=== PATIENT | male | born 1945 | race Two or more races ===

== ENCOUNTER 2019-11-20 10:13 | Day surgery (SDC) | payer MEDICARE ==
[2019-11-18 15:50] VITALS: BMI 24.0
[~2019-11-20 10:13] MED LIST: ALPRAZolam 0.25 MG TAB PO PRN; ASPIRIN 325 MG TAB PO STA; SODIUM CHLORIDE 0.9% 1,000 ML in EMPTY BAG 1 BAG IV ONE; ZOLPIDEM 5 MG TAB PO PRN
[2019-11-20] MEDS ORDERED: fentaNYL (PF) 50 MCG/ML 2 ML AMP IV ONE (14:15)
[2019-11-20] MEDS ORDERED: MIDAZOLAM 2 MG/2 ML VIAL IV ONE (14:15)
[2019-11-20] MEDS ORDERED: LIDOCAINE 1% INJ 10MG/ML (20 ML MDV) SQ ONE (14:16)
[2019-11-20] MEDS ORDERED: IOPAMIDOL-250 100ML BTL INTRAARTER ONE ×2 (14:32)
[2019-11-20] MEDS ORDERED: IOPAMIDOL-250 50ML BTL INTRAARTER ONE ×2 (14:34)
[2019-11-20] MEDS ORDERED: RX INFO: IV CONTRAST WAS GIVEN 1 EACH MISC MISCELLANE PRN (14:58)
--- NOTE | 2019-11-20 15:23 | IR ---
EXAMINATION TYPE: IR angio abdominal w runoff DATE OF EXAM: 11/20/2019 CLINICAL HISTORY: Peripheral arterial disease. Foot pain. TECHNIQUE: Fluoroscopy. COMPARISON: None. FINDINGS: Fluoroscopic guidance was provided during abdominal angiogram with runoff procedure perfor med by Dr. Weeks. A total of 2.8 minutes of fluoroscopic time was utilized during the procedure a nd several cine runs are acquired. Images acquired to access via right groin with subsequent angiogra m and runoff images. Please refer to procedure note for further details as I was not present nor perf ormed procedure. IMPRESSION: As Above.
[2019-11-20 15:28] VITALS: TEMP 97.4
[2019-11-20 17:10] VITALS: RESP 16
--- NOTE | 2019-11-20 17:24 | P.PCN ---
Date of Procedure: 11/20/19 Description of Procedure: PROCEDURES PERFORMED: Abdominal aortic angiogram with bilateral lower extremity runoff, digital subtraction angiography, moderate conscious sedation, ultrasound guidance INDICATION: Claudication, abnormal lower extremity ultrasound HISTORY: Patient is a pleasant 74-year-old male with history of hypertension, prior tobacco abuse, and concern of peripheral arterial disease who presents for workup of abnormal lower extremity ultrasound. He has been having symptoms of bilateral calf pain which occur after walking for a prolonged period of time. He admits he is an avid walker walking approximately 5 miles some days. Patient additionally has occasional episodes of feeling like his legs are going to give out without necessarily feeling lightheaded. CONSENT:I have discussed the risks, benefits and alternative therapies for the above-mentioned procedure and for both sedation/analgesia as well as necessary blood product administration, if indicated, as they pertain to this patient. The patient has indicated understanding and acceptance of the risks and procedures discussed. PROCEDURE: After the risks, benefits and alternatives of the above mentioned procedure explained in detail with the patient, informed consent was obtained. Patient was taken to the catheterization lab and prepped and draped in usual fashion. 1% lidocaine was used to anesthetize the right femoral artery. A 5- Uzbek sheath was placed in the right femoral artery using modified Seldinger technique and ultrasound. Digital subtraction angiography was performed of the abdominal aorta with bilateral lower extremity runoff to the feet. The patient tolerated the procedure well. The sheath was left in place for manual pull. Patient was transported back to the post catheterization holding area in stable condition. Conscious Sedation: Patient was monitored under the direct supervision of vision of myself for conscious sedation using 2 mg Versed and 50 mcg fentanyl for a total duration of 28 minutes HEMODYNAMICS: Blood pressure 162/85 Findings: Abdominal aorta: There is a small saccular infrarenal aneurysm. Mild calcifications. Normal-appearing bilateral renal arteries. Right lower extremity: Right common iliac: Tortuous without significant stenosis Right internal iliac: Normal Right external iliac: Normal Right common femoral artery: Normal: Right SFA: Mild diffuse 20-30% calcific stenosis Right popliteal: There is a focal 80% heavily calcified mid popliteal stenosis. Right anterior tibial: Normal Right peroneal trunk: Moderate 50% diffuse stenosis Right peroneal artery: Diffuse 30-40% stenosis Right posterior tibial: Subtotally occluded with reconstitution distally Left lower extremity: Left common iliac: Tortuous without significant stenosis Left internal iliac: Normal Left external iliac: Normal Left common femoral artery: Normal Left SFA: Diffuse 30% stenosis, distal SFA 60% calcific stenosis Left popliteal tandem 70% and 80% calcific focal stenosis of the mid popliteal artery Left anterior tibial: Patent without significant stenosis Left peroneal: Diffuse 40% stenosis Left posterior tibial: Subtotally occluded with reconstitution distally. FINAL IMPRESSION: 1. Diffuse heavily calcified popliteal stenosis bilaterally as well as 100% stenosis of bilateral posterior tibial arteries. PLAN: 1. Aggressive risk factor modification per most recent ACC/AHA guidelines. 2. Majority of diseases infrapopliteal and patient appears to have claudication with Humble class II symptoms. He is able to walk approximately 5 miles a day. Would recommend exercise program and optimize medical therapy. Would not recommend intervention on popliteal artery solely for claudication-type symptoms. 3. Follow-up with Dr. Mckenzie in the office in 1-2 weeks.
[2019-11-20 18:57] VITALS: BP 170/95; PULSE 75
== END 2019-11-20 18:57 ==
LOC: CATHCVL 10:13 → 3NCARDOBS 14:42 → CATHCVL 18:57
PROVIDERS: ATTEND Internal Medicine
DX: I70.213 Atherosclerosis of native arteries of extremities with intermittent claudication, bilateral legs (principal); I70.92 Chronic total occlusion of artery of the extremities; I70.0 Atherosclerosis of aorta; I71.4 Abdominal aortic aneurysm, without rupture; I77.1 Stricture of artery; I10 Essential (primary) hypertension; E78.2 Mixed hyperlipidemia; Z87.891 Personal history of nicotine dependence; K21.9 Gastro-esophageal reflux disease without esophagitis; Z82.49 Family history of ischemic heart disease and other diseases of the circulatory system; Z91.048 Other nonmedicinal substance allergy status; I35.0 Nonrheumatic aortic (valve) stenosis
CPT/HCPCS: 36200; 75625; 75716; 76937; C1769 ×4; C1894; J2250; J2001; J3010; Q9966 ×2